=== PATIENT | female | born 1990 | race Caucasian/White ===

== ENCOUNTER → 2018-04-29 | Outpatient (CLI) | payer BC | END | disposition home or self-care (01) | LOC: C.LABSPEC 13:12 | PROVIDERS: ATTEND Obstetrics & Gynecology | DX: Z34.01 Encounter for supervision of normal first pregnancy, first trimester (principal) ==

== ENCOUNTER → 2018-05-07 | Outpatient (CLI) | payer BC ==
[2018-05-07 16:08] LABS: BASO % 0.1 %; BASO ABS # 0.01 K/uL (0-0.2); EOS % 0.6 %; EOS ABS # 0.07 K/uL (0-0.5); HEMATOCRIT 38.8 % (37-47); HEMOGLOBIN 13.2 g/dL (12.0-16.0); IG# 0.02 K/uL (0.00-0.02); LYMPH % 18.4 %; LYMPH ABS # 2.05 K/uL (1.2-3.4); MEAN CELL VOLUME 76.2 fL (80-100); MEAN CORPUSCULAR HEMOGLOBIN 25.9 pg (25-34); MEAN PLATELET VOLUME 10.5 fL (7.4-10.4); MONO % 7.5 %; MONO ABS # 0.84 K/uL (0.11-0.59); NEUT % 73.2 %; NEUT ABS # 8.14 K/uL (1.4-6.5); PLATELET COUNT 305 K/uL (130-400); RED CELL DISTRIBUTION WIDTH CV 13.7 % (11.5-14.5); RED CELL DISTRIBUTION WIDTH SD 38.5 fL (36.4-46.3); WHITE BLOOD COUNT 11.13 K/uL (4.8-10.8)
== END | disposition home or self-care (01) ==
LOC: C.LAB1850 15:04
PROVIDERS: ATTEND Obstetrics & Gynecology
DX: Z34.01 Encounter for supervision of normal first pregnancy, first trimester (principal)

== ENCOUNTER 2018-05-18 12:16 | Emergency (ER) | payer BC ==
[~2018-05-18] VITALS: Ht 160 cm; Wt 99.1 kg
[2018-05-18 12:20] VITALS: TEMP 36.7; Ht 160 cm; Wt 99.1 kg
[2018-05-18] MEDS ORDERED: ALBUTEROL 0.083% NEBU SOLN 3 ML VIAL INH STA (13:13)
--- NOTE | 2018-05-18 13:14 | EMERGENCY ROOM VISIT NOTE ---
History Report prepared by Sue: Kunal Plascencia Under the Supervision of: Dr. Zeke Washington M.D. First contact with patient: 12:29 Chief Complaint: DIZZY Stated Complaint: SHAKING, DIZZY, LIGHT HEADED, CHEST HURTS, WEAK Nursing Triage Summary: Pt reports shaky, dizzy, weak, lightheaded, chest hurts, starting when she woke up at 0845 this morning. Pt is 10 weeks , first , [place] [facility] [place] Denies trauma, blurred vision. Dizziness gets worse when she walks around, no change when she turns head. No vomiting, dizziness with the so far, has experienced nausea. History of Present Illness The patient is a 27 year old female who presents to the Emergency Room with complaints of constant chest discomfort that began this morning when she woke up from sleep. The patient describes her chest discomfort as a "pressure" or as if a "truck is sitting on my chest." She also makes several other complaints such as "shakiness, weakness, dizziness, and lightheadedness." She is currently 10 weeks into her first . The patient has visited with her OBGYN and US confirmed an intrauterine gestation. She adds that she has had a dry cough today as well. Source of History: patient Onset: This morning Position: chest Quality: pressure Timing: constant Associated Symptoms: + cough, + weakness Review of Systems See HPI for pertinent positives & negatives. A total of 10 systems reviewed and were otherwise negative. Past Medical & Surgical No daily medications, no chronic medical history. Social History Smoking Status: Never Smoker Alcohol Use: none Marital Status: Housing Status: lives with significant other Current/Historical Medications Scheduled Cephalexin Monohydrate (Keflex Susp), 10 ML PO BID Pediatric Multiple Vitamin W/ (Flintstones Chewable), 1 TAB PO QAM Allergies Coded Allergies: No Known Allergies (Unverified , 05/18/18) Physical Exam Vital Signs Date Time Temp Pulse Resp B/P (MAP) Pulse Ox O2 Delivery O2 Flow Rate FiO2 05/18/18 19:57 110 17 140/59 96 05/18/18 17:54 99 17 130/70 98 Room Air 05/18/18 14:01 136/76 05/18/18 13:57 103 18 100 05/18/18 13:22 98 Room Air 05/18/18 13:22 98 Room Air 8/6/18 13:10 94 05/18/18 13:00 96 18 130/80 95 Room Air 05/18/18 12:49 91 16 138/83 95 05/18/18 12:20 36.7 103 20 126/84 98 Room Air Physical Exam GENERAL: Awake, alert, well-appearing, in no acute distress HENT: Normocephalic, atraumatic. Oropharynx unremarkable. EYES: Normal conjunctiva. Sclera non-icteric. NECK: Supple. No nuchal rigidity. FROM. No JVD. RESPIRATORY: Clear to auscultation. CARDIAC: Regular rate, normal rhythm. Extremities warm and well perfused. Pulses equal. ABDOMEN: Soft, non-distended. No tenderness to palpation. No rebound or guarding. No masses. RECTAL: Deferred. MUSCULOSKELETAL: Chest examination reveals no tenderness. The back is symmetrical on inspection without obvious abnormality. There is no CVA tenderness to palpation. No joint edema. LOWER EXTREMITIES: Calves are equal size bilaterally and non-tender. No edema. No discoloration. NEURO: Normal sensorium. No sensory or motor deficits noted. SKIN: No rash or jaundice noted. Medical Decision & Procedures ER Provider Diagnostic Interpretation: Radiology results as stated below per my review and radiologist interpretation: SINGLE VIEW CHEST CLINICAL HISTORY: Atypical chest pain. FINDINGS: An AP, portable, upright chest radiograph is obtained. No prior studies are available for comparison at the time of dictation. The examination is degraded by portable technique and patient rotation. The cardiomediastinal silhouette is unremarkable. The lungs and pleural spaces are clear. No pneumothorax is seen. The bony thorax is grossly intact. IMPRESSION: No active disease in the chest. Electronically signed by: oG Mo M.D. 05/18/2018 1:43 PM Dictated Date/Time: 05/18/2018 1:43 PM Laboratory Results 05/18/18 12:50 Red Blood Count 4.89, Mean Corpuscular Volume 75.1, Mean Corpuscular Hemoglobin 26.2, Mean Corpuscular Hemoglobin Concent 34.9, Mean Platelet Volume 10.8, Neutrophils (%) (Auto) 82.2, Lymphocytes (%) (Auto) 10.2, Monocytes (%) (Auto) 6.8, Eosinophils (%) (Auto) 0.5, Basophils (%) (Auto) 0.1, Neutrophils # (Auto) 10.06, Lymphocytes # (Auto) 1.25, Monocytes # (Auto) 0.83, Eosinophils # (Auto) 0.06, Basophils # (Auto) 0.01 05/18/18 12:50 Test 05/18/18 12:50 White Blood Count 12.23 K/uL (4.8-10.8) Red Blood Count 4.89 M/uL (4.2-5.4) Hemoglobin 12.8 g/dL (12.0-16.0) Hematocrit 36.7 % (37-47) Mean Corpuscular Volume 75.1 fL (80-100) Mean Corpuscular Hemoglobin 26.2 pg (25-34) Mean Corpuscular Hemoglobin Concent 34.9 g/dl (32-36) Platelet Count 270 K/uL (130-400) Mean Platelet Volume 10.8 fL (7.4-10.4) Neutrophils (%) (Auto) 82.2 % Lymphocytes (%) (Auto) 10.2 % Monocytes (%) (Auto) 6.8 % Eosinophils (%) (Auto) 0.5 % Basophils (%) (Auto) 0.1 % Neutrophils # (Auto) 10.06 K/uL (1.4-6.5) Lymphocytes # (Auto) 1.25 K/uL (1.2-3.4) Monocytes # (Auto) 0.83 K/uL (0.11-0.59) Eosinophils # (Auto) 0.06 K/uL (0-0.5) Basophils # (Auto) 0.01 K/uL (0-0.2) RDW Standard Deviation 37.4 fL (36.4-46.3) RDW Coefficient of Variation 13.7 % (11.5-14.5) Immature Granulocyte % (Auto) 0.2 % Immature Granulocyte # (Auto) 0.02 K/uL (0.00-0.02) D-Dimer 310 ug/L FEU (0-500) Urine Color YELLOW Urine Appearance CLOUDY (CLEAR) Urine pH 5.0 (4.5-7.5) Urine Specific Hurst 1.009 (1.000-1.030) Urine Protein NEG (NEG) Urine Glucose (UA) NEG (NEG) Urine Ketones NEG (NEG) Urine Occult Blood NEG (NEG) Urine Nitrite NEG (NEG) Urine Bilirubin NEG (NEG) Urine Urobilinogen NEG (NEG) Urine Leukocyte Esterase NEG (NEG) Urine WBC (Auto) 1-5 /hpf (0-5) Urine RBC (Auto) 0-4 /hpf (0-4) Urine Hyaline Casts (Auto) 1-5 /lpf (0-5) Urine Epithelial Cells (Auto) >30 /lpf (0-5) Urine Bacteria (Auto) 2+ (NEG) Anion Gap 8.0 mmol/L (3-11) Est Creatinine Clear Calc Drug Dose 156.8 ml/min Estimated GFR () 145.0 Estimated GFR (Non- 125.1 BUN/Creatinine Ratio 13.1 (10-20) Calcium Level 9.2 mg/dl (8.5-10.1) Total Bilirubin 0.3 mg/dl (0.2-1) Direct Bilirubin 0.1 mg/dl (0-0.2) Aspartate Amino Transf (AST/SGOT) 12 U/L (15-37) Alanine Aminotransferase (ALT/SGPT) 25 U/L (12-78) Alkaline Phosphatase 60 U/L (45-117) Total Creatine Kinase 34 U/L (26-192) Creatine Kinase MB < 1.0 ng/ml (0.5-3.6) Creatine Kinase MB Ratio (0-3.0) Troponin I < 0.015 ng/ml (0-0.045) Total Protein 7.3 gm/dl (6.4-8.2) Albumin 3.4 gm/dl (3.4-5.0) Lipase 149 U/L (73-393) Human Chorionic Gonadotropin, Quant 64609 mIU/mL Date/Time Source Procedure Growth Status 05/18/18 12:50 Urine , Clean Catch Urine Culture - Final MORE THAN THREE TYPES OF ORGANISMS IL... Complete Labs reviewed by ED physician. Medications Administered Medications (Trade) Dose Ordered Sig/Ciaran Route Start Time Stop Time Status Last Admin Dose Admin Albuterol Sulfate (Ventolin 0.083% 2.5MG/3ML Neb) 2.5 mg NOW STAT INH 05/18/18 13:13 05/18/18 13:16 DC 05/18/18 13:46 2.5 MG Ceftriaxone Sodium (Rocephin Inj) 1 gm NOW STAT IV 05/18/18 13:53 05/18/18 13:54 DC 05/18/18 14:17 1 GM Sodium Chloride 1,000 ml @ 999 mls/hr Q1H1M STAT IV 05/18/18 13:55 05/18/18 14:55 DC 05/18/18 14:17 999 MLS/HR Albuterol (Ventolin Hfa Inhaler) 2 puffs NOW STAT INH 05/18/18 14:57 05/18/18 14:59 DC 05/18/18 15:17 2 PUFFS ECG Per My Interpretation Indication: chest pain Rate (beats per minute): 92 Rhythm: normal sinus Findings: other (No PAXTON/STD) ED Course 1305: Past medical records reviewed. The patient was evaluated in room B8. A complete history and physical examination was performed. Medical Decision Prior records/ancillary studies reviewed. Triage Nursing notes reviewed. Differential diagnosis: Etiologies such as cardiac ischemia, aortic dissection, pulmonary embolism, pneumonia, pneumothorax, musculoskeletal, infections, pericarditis, myocarditis , esophageal rupture, gastrointestinal, as well as others were entertained. This is a 27-year-old female who presents emergency department complaining of dizziness. Using shared medical decision making with the patient and the fact that the patient has had an intrauterine confirmation of her along with the fact that the patient is not having any abdominal pain or pelvic discharge we decided to concentrate on the patient's chest pains. The patient has a normal d-dimer she was given a breathing treatment in the emergency department as she is having a cough. She was also started on Rocephin for what is presumed to be a urinary tract infection. Again using shared medical decision making based on the fact that the patient has a negative d-dimer as well as a normal chest x-ray she is not hypoxic and is not tachycardic we made the decision not to CAT scan the chest due to the effects of radiation. At the end of the visit the patient requested a ultrasound of the baby. For this reason she was sent for an ultrasound and signed out to Dr. De Santiago at change of shift. Medication Reconcilliation Current Medication List: was personally reviewed by me Blood Pressure Screening Patient's blood pressure: Normal blood pressure Impression Primary Impression: Dizziness Additional Impression: Bronchitis Scribe Attestation The scribe's documentation has been prepared under my direction and personally reviewed by me in its entirety. I confirm that the note above accurately reflects all work, treatment, procedures, and medical decision making performed by me. Departure Information Dispostion Home / Self-Care Prescriptions Cephalexin Monohydrate (KEFLEX SUSP) 250 Mg/5 Ml Susp 10 ML PO BID for 7 Days, #140 ML Prov: Zeke Washington MD 05/18/18 Referrals No Doctor, Assigned (PCP) Patient Instructions My [facility] Problem Qualifiers
[2018-05-18 13:22] VITALS: O2SAT 98
[2018-05-18 13:32] LABS: BASO % 0.1 %; BASO ABS # 0.01 K/uL (0-0.2); EOS % 0.5 %; EOS ABS # 0.06 K/uL (0-0.5); HEMATOCRIT 36.7 % (37-47); HEMOGLOBIN 12.8 g/dL (12.0-16.0); IG# 0.02 K/uL (0.00-0.02); LYMPH % 10.2 %; LYMPH ABS # 1.25 K/uL (1.2-3.4); MEAN CELL VOLUME 75.1 fL (80-100); MEAN CORPUSCULAR HEMOGLOBIN 26.2 pg (25-34); MEAN CORPUSCULAR HGB CONC 34.9 g/dl (32-36); MEAN PLATELET VOLUME 10.8 fL (7.4-10.4); MONO % 6.8 %; MONO ABS # 0.83 K/uL (0.11-0.59); NEUT % 82.2 %; NEUT ABS # 10.06 K/uL (1.4-6.5); PLATELET COUNT 270 K/uL (130-400); RED CELL DISTRIBUTION WIDTH CV 13.7 % (11.5-14.5); RED CELL DISTRIBUTION WIDTH SD 37.4 fL (36.4-46.3); WHITE BLOOD COUNT 12.23 K/uL (4.8-10.8)
--- NOTE | 2018-05-18 13:45 | DIAGNOSTIC IMAGING REPORT ---
SINGLE VIEW CHEST CLINICAL HISTORY: Atypical chest pain. FINDINGS: An AP, portable, upright chest radiograph is obtained. No prior studies are available for comparison at the time of dictation. The examination is degraded by portable technique and patient rotation. The cardiomediastinal silhouette is unremarkable. The lungs and pleural spaces are clear. No pneumothorax is seen. The bony thorax is grossly intact. IMPRESSION: No active disease in the chest. Electronically signed by: Go Mo M.D. 05/18/2018 1:43 PM Dictated Date/Time: 05/18/2018 1:43 PM
[2018-05-18 13:53] LABS: ALBUMIN 3.4 gm/dl (3.4-5.0); ALKALINE PHOSPHATASE 60 U/L (45-117); ALT/SGPT 25 U/L (12-78); AST/SGOT 12 U/L (15-37); BLOOD UREA NITROGEN 8 mg/dl (7-18); CALCIUM 9.2 mg/dl (8.5-10.1); CARBON DIOXIDE 23 mmol/L (21-32); CKMB < 1.0 ng/ml (0.5-3.6); CREATININE 0.61 mg/dl (0.60-1.20); GLUCOSE 100 mg/dl (70-99); LIPASE 149 U/L (73-393); POTASSIUM 3.9 mmol/L (3.5-5.1); SODIUM 136 mmol/L (136-145); TOTAL PROTEIN 7.3 gm/dl (6.4-8.2)
[2018-05-18] MEDS ORDERED: CEFTRIAXONE SOD INJ 1 GM ADDVIAL IV STA (13:53)
[2018-05-18] MEDS ORDERED: SODIUM CHLORIDE 0.9% 1000ML 1,000 ML IV STA (13:55)
[2018-05-18] MEDS ORDERED: PEDICHW50 PO (14:08)
[2018-05-18] MEDS ORDERED: ALBUTEROL HFA 8 GM INHALER INH STA (14:57)
[2018-05-18] MEDS ORDERED: KFLS250100 PO (15:04)
--- NOTE | 2018-05-18 17:45 | DIAGNOSTIC IMAGING REPORT ---
<14 WKS SINGLE CLINICAL HISTORY: Pt c/o weakness pain TECHNIQUE: Ultrasound COMPARISON STUDY: None FINDINGS: Brain, viable intrauterine . Twin A has a heartbeat of 200 bpm. HISTORY: Of gestational age is 9 weeks 3 days. Twin B has a heart rate 1 75 bpm. gestational age is 9 weeks 1 day. Maternal cervix closed. There is a millimeters subchorionic hematoma inferior to the gestational sac. Left ovary contains a 2 cm cyst right ovary is not well seen IMPRESSION: Twin, viable intrauterine of approximately 9 weeks 1 day gestational age. The above report was generated using voice recognition software. It may contain grammatical, syntax or spelling errors. Electronically signed by: Pardeep Bowling M.D. 05/18/2018 5:43 PM Dictated Date/Time: 05/18/2018 5:41 PM
[2018-05-18 19:57] VITALS: BP 140/59; PULSE 110; O2SAT 96
--- NOTE | 2018-05-19 00:50 | EMERGENCY ROOM VISIT NOTE ---
ED Visit Note First contact with patient: 18:29 I received this patient in signout at the change of shift from Dr. Washington, pending ultrasound of the pelvis. This study was obtained and reveals an intrauterine twin . Study is read as below: <14 WKS SINGLE CLINICAL HISTORY: Pt c/o weakness pain TECHNIQUE: Ultrasound COMPARISON STUDY: None FINDINGS: Brain, viable intrauterine . Twin A has a heartbeat of 200 bpm. HISTORY: Of gestational age is 9 weeks 3 days. Twin B has a heart rate 1 75 bpm. gestational age is 9 weeks 1 day. Maternal cervix closed. There is a millimeters subchorionic hematoma inferior to the gestational sac. Left ovary contains a 2 cm cyst right ovary is not well seen IMPRESSION: Twin, viable intrauterine of approximately 9 weeks 1 day gestational age. The above report was generated using voice recognition software. It may contain grammatical, syntax or spelling errors. Electronically signed by: Pardeep Bowling M.D. 05/18/2018 5:43 PM Dictated Date/Time: 05/18/2018 5:41 PM Patient and family were made aware of the findings. 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 This time the patient was referred back to her AQUATICS DIRECTOR for further management. She will return to the ED for worsening of symptoms or any medical concerns. Please refer to Dr. Washington 's notes for further details of the history, physical and visit.
== END 2018-05-18 19:57 | disposition home or self-care (01) ==
LOC: C.EDB 12:18
DX: O99.511 Diseases of the respiratory system complicating pregnancy, first trimester (principal); J40 Bronchitis, not specified as acute or chronic; R42 Dizziness and giddiness; Z3A.09 9 weeks gestation of pregnancy